=== PATIENT | female | born 1950 | race Hispanic/Latino ===

== ENCOUNTER → 2018-03-12 | Day surgery (SDC) | payer BC ==
[2018-03-08 11:08] LABS: BASOPHILS % 0.6 % (0.0-1.0); EOSINOPHILS # (AUTO) 0.1 (0.0-0.4); EOSINOPHILS % 1.7 % (0.0-6.0); HEMATOCRIT 42.4 % (34.2-44.1); HEMOGLOBIN 13.8 g/dL (12.0-16.0); LYMPHOCYTES % 31.7 % (18.0-39.1); MEAN CORPUSCULAR HEMOGLOBIN 31.4 pg (28-32); MEAN CORPUSCULAR HGB CONC 32.5 g/dL (31-35); MEAN CORPUSCULAR VOLUME 96.4 fL (81-99); MONOCYTES # (AUTO) 0.5 (0.2-0.8); NEUTROPHILS # (AUTO) 3.8 (2.1-6.9); NEUTROPHILS % 58.7 % (38.7-80.0); PLATELET COUNT 258 x10e3/uL (140-360); RED CELL DISTRIBUTION WIDTH 13.8 % (11.7-14.4)
[2018-03-08 11:53] LABS: ANION GAP 11.1 mmol/L (8-16); BLOOD UREA NITROGEN 25 mg/dL (7-26); BUN/CREATININE RATIO 30 (6-25); CALCIUM 9.9 mg/dL (8.4-10.2); CARBON DIOXIDE 27 mmol/L (22-29); CHLORIDE 105 mmol/L (98-107); CREATININE, SERUM 0.83 mg/dL (0.57-1.11); EST GLOMERULAR FILTRATION RATE > 60 ML/MIN (60-); GLUCOSE 93 mg/dL (74-118); POTASSIUM 4.1 mmol/L (3.5-5.1); SODIUM 139 mmol/L (136-145)
--- NOTE | 2018-03-08 12:29 | Diagnostic Imaging Report ---
EXAMINATION: PA and lateral views of the chest. COMPARISON: None CLINICAL HISTORY: Preoperative study excisional biopsy neck mass DISCUSSION: The lungs are reasonably well inflated. No focal airspace consolidation, pleural effusion, or pneumothorax. Hazy opacity adjacent to the cardiac apex likely reflects prominent epicardial fat. Otherwise normal cardiomediastinal contour with the exception of mild atherosclerotic calcification of the thoracic aorta. No acute osseous abnormality. IMPRESSION: No acute cardiopulmonary abnormalities. Signed by: Dr. Jarrett Wolf M.D. on 03/08/2018 12:25 PM
[~2018-03-12] MED LIST: AMLODIPINE BES2.5 MG PO; AMLODIPINE BESYL5 MG PO; BENICAR20 MG PO; BISOPROLOL FUMAR5 MG PO; BUPIVACAINE 0.25%/EPI 30ML SDV INJ ONE; CLARINEX5 MG PO; CLARITIN-D 121 EACH PO; CRESTOR10 MG PO; DEXAMETHASONE SOD PHOS INJ 4 MG/ML VIAL ONE; DEXTROSE 5% 250ML 250 ML IV ONE; DIOVAN40 MG PO; FENTANYL CITRATE/PF 100MCG/2 ML INJ ONE; HYDROCODONE/APAP 7.5MG-325MG 1 EA TAB ONE; LEVOTHYROXINE88 MCG PO; LEXAPRO10 MG PO; LIDOCAINE HCL 2% LOCAL INJ 5 ML SDV VIAL INJ ONE; LORATADINE10 MG PO; MIDAZOLAM HCL 2 MG/2 ML VIAL ONE; MORPHINE SULFATE 2 MG/ML SYR ONE; OMEPRAZOLE40 MG PO; ONDANSETRON HCL INJ 2 MG/ML VIAL ONE; PHENTERMINE H37.5 M1 PO; PROMETHAZINE HCL (IM) 25 MG/ML VIAL ONE; PROPOFOL IV EMULSION 10 MG/ML 20 ML VIAL ONE; ROCURONIUM BROMIDE 10 MG/ML 5ML VIAL ONE; SEVOFLURANE INHAL SOLN 250 ML PEN BTL ONE; SYNTHROID100 MCG PO; TYLENOL WITH C1 EACH PO; VESICARE5 MG PO; VICTOZA 3-0.6 MG/0.1 SQ; XIGDUO XR PO
--- NOTE | 2018-03-12 15:26 | Operative Report ---
DATE OF PROCEDURE: March 12, 2018 PREOPERATIVE DIAGNOSIS: Right upper neck mass, rule out malignancy. 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 INDUSTRIAL SALES ENGINEER: JACEK Jimenez. ANESTHESIA: General. COMPLICATIONS: None. ESTIMATED BLOOD LOSS: Minimal. DESCRIPTION OF PROCEDURE: With the patient lying in bed in the supine position under good general endotracheal anesthesia, the neck was prepped with Betadine solution and draped in the usual manner. An incision was made in the right upper neck in the submandibular area and carried down through the subcutaneous tissue. The anterior border of the sternocleidomastoid was then identified and retracted laterally and underneath the sternocleidomastoid immediately a well-encapsulated mass was encountered. This had the appearance of either some kind of parotid or thyroid tissue. This was slowly and carefully then from all of its attachments. There was absolutely no attachment or blood supply coming to the same from below. There was small amount of blood supply coming in at the very top of the lesion and this was ligated with 2-0 Vicryl and the specimen was totally and completely divided and sent for frozen section, which came back as probably thyroid tissue pending permanent section. 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 This is way away from the lower neck and from the midline and had no semblance of any blood supply coming either medially or inferiorly to the mass. The whole area was then thoroughly irrigated. Perfect hemostasis was ascertained. The platysma and subcutaneous tissue were reapproximated with interrupted sutures of 3-0 Vicryl and the skin was closed with interrupted sutures of 5-0 nylon. A dressing was applied. The sponge, lap and needle count was correct. Patient tolerated the procedure well and returned to the recovery room in stable condition. Job#: [id number]
[2018-03-12 15:45] VITALS: BP 128/72
--- OUTSIDE RECORDS SUMMARY | 2018-03-16 13:16 | XMS REPORT | Clinical Summary ---
Author Author ERNESTINA [facility] Address Unknown Phone Unavailable Care Team Providers Care Franchise Field Consultant Name Role Phone PCP Unavailable Allergies No Known Allergies Current Medications Prescription Sig. Disp. Refills Start End Date Status Date valsartan (DIOVAN) 320 MG Take 320 mg by mouth Active tablet daily. amLODIPine (NORVASC) 2.5 Take 2.5 mg by mouth Active MG tablet daily. bisoprolol (ZEBETA) 5 MG Take 5 mg by mouth daily. Active tablet levothyroxine (SYNTHROID, Take 88 mcg by mouth Active LEVOTHROID) 88 MCG tablet Every morning on an empty stomach. dapagliflozin-metformin Take by mouth daily. Active (XIGDUO XR) 10-1,000 mg per ER tablet rosuvastatin (CRESTOR) 5 Take 5 mg by mouth daily. Active MG tablet escitalopram oxalate Take 10 mg by mouth Active (LEXAPRO) 10 MG tablet daily. liraglutide (VICTOZA Inject subcutaneously Active 2-MATEUSZ) 0.6 mg/0.1 mL (18 daily . mg/3 mL) PnIj omeprazole (PRILOSEC) 20 Take 20 mg by mouth Active MG capsule daily. difluprednate (DUREZOL) Apply to eye(s) 4 (four) Active 0.05 % Drop times daily. bromfenac (PROLENSA) 0.07 Apply to eye(s) daily Active % Drop Left eyr. TIZANIDINE HCL Take by mouth daily . Active (TIZANIDINE ORAL) mirabegron (MYRBETRIQ) 50 Take 50 mg by mouth 06/26/19 Discontin mg Tb24 ER tablet daily. 18 ued polymyxin B 1 drop. 06/26/19 Discontin sulf-trimethoprim 18 ued (POLYTRIM) 10,000 unit- 1 mg/mL Drop Active Problems Not on file Encounters Date Type Specialty Care Team Description 06/29/2017 [facility] Yudi Rausch, Encounter 06/29/2017 Anesthesia Marlyn Adam MD Event 06/29/2017 Procedure Pass 06/29/2017 Surgery Yudi Rausch, EXTRACTION,CATARACT W/IOL 06/26/2017 Hospital Pre-Admission Testing Encounter 05/18/2017 [facility] Yudi Rausch, Encounter 05/18/2017 Anesthesia Keon Muñoz Event MD Juan 05/18/2017 Procedure Pass 05/18/2017 Surgery Yudi Rausch, EXTRACTION,CATARACT W/IOL 05/15/2017 Hospital Pre-Admission Testing Encounter after 03/11/2017 Social History Tobacco Use Types Packs/Day Years Used Date Never Smoker Smokeless Tobacco: Never Used Alcohol Use Drinks/Week oz/Week Comments No Sex Assigned at Date Recorded Not on file Last Filed Vital Signs Vital Sign Reading Time Taken Blood Pressure 143/72 06/29/2017 8:30 AM SONOGRAPHY TECHNOLOGIST Pulse 72 06/29/2017 8:30 AM SONOGRAPHY TECHNOLOGIST Temperature 36.9 C (98.4 F) 06/29/2017 8:30 AM SONOGRAPHY TECHNOLOGIST Respiratory Rate 16 06/29/2017 8:30 AM SONOGRAPHY TECHNOLOGIST Oxygen Saturation 99% 06/29/2017 8:30 AM SONOGRAPHY TECHNOLOGIST Inhaled Oxygen - - Concentration Weight 74.8 kg (165 lb) 06/26/2017 10:21 AM SONOGRAPHY TECHNOLOGIST Height 152.4 cm (5') 06/26/2017 10:21 AM SONOGRAPHY TECHNOLOGIST Body Mass Index 32.22 06/26/2017 10:21 AM SONOGRAPHY TECHNOLOGIST Plan of Treatment Not on file Implants Implanted Type Area Bacteriologist Food Device Expiration Model / Identifier Date Serial / Lot Iol Acrysof Radha 6.0 13 23d Ophthalmol Right: Eye WARNER LAB:SURG 08/29/2020 SN60WF.230 Sn60wf.230 - [id number] / Implanted: Qty: 1 on 05/18/2017 by [id number] Yudi Rausch MD 7 / Iol Acrysof Radha 6.0 13 23.5d Ophthalmol Left: Eye WARNER LAB:SURG 08/29/2021 SN60WF.235 Sn60wf.235 - [id number] [id number] / Implanted: Qty: 1 on 06/29/2017 by [id number] Yudi Rausch MD 1 / Procedures Procedure Name Priority Date/Time Associated Diagnosis Comments EXTRACTION,CATARACT W/IOL 06/29/2017 H25.12- AGE RELATED 7:43 AM SONOGRAPHY TECHNOLOGIST NUCLEAR CATARACT, LEFT EYE Special Needs (STANDARD LENS) EXTRACTION,CATARACT W/IOL 05/18/2017 H25.13- AGE RELATED 8:38 AM SONOGRAPHY TECHNOLOGIST NUCLEAR CATARACT, BILATERAL Special Needs (STANDARD LENS) after 03/11/2017 Results * POC-Glucose meter (06/29/2017 7:31 AM) Only the most recent of 2 results within the time period is included. Component Value Ref Range POC-Glucose Meter 83Comment: TESTED AT [facility] [address] 70 - 110 mg/dL [facility] [address] Specimen Performing Laboratory Blood [facility] [address] [address] after 03/11/2017
--- OUTSIDE RECORDS SUMMARY | 2018-03-16 13:16 | XMS REPORT ---
Author Author [facility] Address Unknown Phone Unavailable Care Team Providers Care [employer] Artistic Director Name Role Phone Mariel QUINTANA Unavailable Unavailable Nir YAN Unavailable Unavailable Problems This patient has no known problems. Allergies, Adverse Reactions, Alerts This patient has no known allergies or adverse reactions. Medications This patient has no known medications. Results Test Description Test Time Test Comments Text Results Atomic Results Result Comments CHEST 2 VIEWS 2018-03-08 12:24:00 [place] [address] Patient Name: NOE OCONNOR MR #: [id number] : 1950 Age/Sex: 67/F Req #: [id number] Adm Physician: Ordered by: EDYTA QUINTANA MD Report #: [id number] Location: OR Room/Bed: Procedure: [id number] DX/CHEST 2 VIEWS Exam Date: 03/08/18 Exam Time: 1120 REPORT STATUS: Signed EXAMINATION: PA and lateral views of the chest. COMPARISON: None CLINICAL HISTORY: Preoperative study excisional biopsy neck mass DISCUSSION: The lungs are reasonably well inflated. No focal airspace consolidation, pleural effusion, or pneumothorax. Hazy opacity adjacent to the cardiac apex likely reflects prominent epicardial fat. Otherwise normal cardiomediastinal contour with the exception of mild atherosclerotic calcification of the thoracic aorta. No acute osseous abnormality. IMPRESSION: No acute cardiopulmonary abnormalities. Signed by: Dr. Corinne Fajardo M.D. on 03/08/2018 12:25 PM Dictated By: CORINNE FAJARDO MD 24 Transcribed By: LUIS FERNANDO on 03/08/181224 COPY TO: EDYTA QUINTANA MD POCT-GLUCOSE METER 2017-06-29 07:34:00 POC-GLUCOSE METER (BEAKER) (test ygxj=[id number]) 83 mg/dL 70-110 TESTED AT [place] [address] POCT-GLUCOSE [id number] 07:45:00* Test Item Value Reference Range Comments POC-GLUCOSE METER (BEAKER) (test rdsn=[id number]) 94 mg/dL 70-110 TESTED AT [place] [address]
== END | disposition home or self-care (01) ==
LOC: OR 08:15
PROVIDERS: ATTEND Surgery
DX: C73 Malignant neoplasm of thyroid gland (principal); E11.22 Type 2 diabetes mellitus with diabetic chronic kidney disease; I12.0 Hypertensive chronic kidney disease with stage 5 chronic kidney disease or end stage renal disease; N18.6 End stage renal disease; G47.33 Obstructive sleep apnea (adult) (pediatric); F32.9 Major depressive disorder, single episode, unspecified; F41.9 Anxiety disorder, unspecified; Z01.810 Encounter for preprocedural cardiovascular examination; Z01.812 Encounter for preprocedural laboratory examination; Z01.818 Encounter for other preprocedural examination; Z79.84 Long term (current) use of oral hypoglycemic drugs
CPT/HCPCS: 36415 ×2; 60200; 71046; 80048; 82948; 85025; 88307; 88331; 93005; J1100; J2001; J2250; J2270; J2405; J2550; J2704; J7070; 88304; 88305

== ENCOUNTER 2018-05-13 10:38 | Inpatient (IN) | payer BC, MEDICARE ==
[~2018-05-13 10:38] MED LIST changes: -AMLODIPINE BESYL5 MG PO; -BUPIVACAINE 0.25%/EPI 30ML SDV INJ ONE; -CLARITIN-D 121 EACH PO; -DEXAMETHASONE SOD PHOS INJ 4 MG/ML VIAL ONE; -DEXTROSE 5% 250ML 250 ML IV ONE; -FENTANYL CITRATE/PF 100MCG/2 ML INJ ONE; -HYDROCODONE/APAP 7.5MG-325MG 1 EA TAB ONE; -LIDOCAINE HCL 2% LOCAL INJ 5 ML SDV VIAL INJ ONE; -LORATADINE10 MG PO; -MIDAZOLAM HCL 2 MG/2 ML VIAL ONE; -MORPHINE SULFATE 2 MG/ML SYR ONE; -ONDANSETRON HCL INJ 2 MG/ML VIAL ONE; -PROMETHAZINE HCL (IM) 25 MG/ML VIAL ONE; -PROPOFOL IV EMULSION 10 MG/ML 20 ML VIAL ONE; -ROCURONIUM BROMIDE 10 MG/ML 5ML VIAL ONE; -SEVOFLURANE INHAL SOLN 250 ML PEN BTL ONE; -SYNTHROID100 MCG PO; -TYLENOL WITH C1 EACH PO
--- OUTSIDE RECORDS SUMMARY | 2018-05-13 10:41 | XMS REPORT | Clinical Summary ---
Author Author ERNESTINA [facility] Address Unknown Phone Unavailable Care Team Providers Care Lean [employer] Black Belt Name Role Phone Sharpless PCP Allergies No Known Allergies Medications End Date Status Medication Sig Dispensed Refills Start Date Active valsartan (DIOVAN) 320 MG Take 320 mg 0 tablet by mouth daily. Active amLODIPine (NORVASC) 2.5 Take 2.5 mg 0 MG tablet by mouth daily. Active bisoprolol (ZEBETA) 5 MG Take 5 mg by 0 tablet mouth daily. Active levothyroxine (SYNTHROID, Take 88 mcg 0 LEVOTHROID) 88 MCG tablet by mouth Every morning on an empty stomach. Active dapagliflozin-metformin Take by mouth 0 (XIGDUO XR) 10-1,000 mg daily. per ER tablet Active rosuvastatin (CRESTOR) 5 Take 5 mg by 0 MG tablet mouth daily. Active escitalopram oxalate Take 10 mg by 0 (LEXAPRO) 10 MG tablet mouth daily. Active liraglutide (VICTOZA Inject 0 2-MATEUSZ) 0.6 mg/0.1 mL (18 subcutaneousl mg/3 mL) PnIj y daily . Active omeprazole (PRILOSEC) 20 Take 20 mg by 0 MG capsule mouth daily. Active difluprednate (DUREZOL) Apply to 0 0.05 % Drop eye(s) 4 (four) times daily. Active bromfenac (PROLENSA) 0.07 Apply to 0 % Drop eye(s) daily Left eyr. Active TIZANIDINE HCL Take by mouth 0 (TIZANIDINE ORAL) daily . 06/26/2017 Discontinued mirabegron (MYRBETRIQ) 50 Take 50 mg by 0 mg Tb24 ER tablet mouth daily. 06/26/2017 Discontinued polymyxin B 1 drop. 0 sulf-trimethoprim (POLYTRIM) 10,000 unit- 1 mg/mL Drop Active Problems Not on file Encounters Care Team Description Date Type Specialty Marlyn Adam MD 06/29/2017 Anesthesia Event Yudi Rausch MD EXTRACTION,CATARACT W/IOL 06/29/2017 Surgery Yudi Rausch MD 06/29/2017 Hospital Encounter Resource, Oqmt Preadmit Phone 06/26/2017 Hospital Pre-Admission Testing Encounter Yudi Rausch MD EXTRACTION,CATARACT W/IOL 05/18/2017 Surgery Keon Muñoz MD 05/18/2017 Anesthesia Event Yudi Rausch MD 05/18/2017 Hospital Encounter 05/15/2017 Hospital Pre-Admission Testing Encounter after 05/12/2017 Social History Date Tobacco Use Types Packs/Day Years Used Never Smoker Smokeless Tobacco: Never Used Alcohol Use Drinks/Week oz/Week Comments No Sex Assigned at Date Recorded Not on file Industry Job Start Date Occupation Not on file Not on file Not on file Travel End Travel History Travel Start No recent travel history available. Last Filed Vital Signs Time Taken Vital Sign Reading 06/29/2017 8:30 AM FINE ARTS MODEL Blood Pressure 143/72 06/29/2017 8:30 AM FINE ARTS MODEL Pulse 72 06/29/2017 8:30 AM FINE ARTS MODEL Temperature 36.9 C (98.4 F) 06/29/2017 8:30 AM FINE ARTS MODEL Respiratory Rate 16 06/29/2017 8:30 AM FINE ARTS MODEL Oxygen Saturation 99% - Inhaled Oxygen - Concentration 06/26/2017 10:21 AM FINE ARTS MODEL Weight 74.8 kg (165 lb) 06/26/2017 10:21 AM FINE ARTS MODEL Height 152.4 cm (5') 06/26/2017 10:21 AM FINE ARTS MODEL Body Mass Index 32.22 Plan of Treatment Not on file Implants Device Identifier Shelf Expiration Date Model / Serial / Lot Implanted Type Area Manufactur er 08/29/2020 SN60WF.230 / [id number] / Iol Acrysof Radha 6.0 13 23d Ophthalmol Right: Eye WARNER Sn60wf.230 - [id number] [id number] LAB:SURG Implanted: Qty: 1 on 05/18/2017 by Yudi Rausch MD 08/29/2021 SN60WF.235 / [id number] / Iol Acrysof Radha 6.0 13 23.5d Ophthalmol Left: Eye WARNER Sn60wf.235 - [id number] [id number] LAB:SURG Implanted: Qty: 1 on 06/29/2017 by Yudi Rausch MD Procedures Comments Procedure Name Priority Date/Time Associated Diagnosis EXTRACTION,CATARACT W/IOL 06/29/2017 H25.12- AGE RELATED 7:43 AM FINE ARTS MODEL NUCLEAR CATARACT, LEFT EYE Special Needs (STANDARD LENS) POCT-GLUCOSE METER Routine 06/29/2017 7:31 AM FINE ARTS MODEL EXTRACTION,CATARACT W/IOL 05/18/2017 H25.13- AGE RELATED 8:38 AM FINE ARTS MODEL NUCLEAR CATARACT, BILATERAL Special Needs (STANDARD LENS) POCT-GLUCOSE METER Routine 05/18/2017 7:36 AM FINE ARTS MODEL after 05/12/2017 Results * POC-Glucose meter (06/29/2017 7:31 AM FINE ARTS MODEL) Only the most recent of 2 results within the time period is included. POC-Glucose Meter 83Comment: TESTED AT [facility] 70 - 110 mg/dL [facility] [address] [facility] [place] [place] [address] Specimen Blood Performing Organization Address City/State/Zipcode Phone Number [facility] [address] [place] [address] [facility] after 05/12/2017 Insurance Payer Benefit Subscriber ID Type Phone Address Plan / Group BLUE CROSS/BLUE SHIELD BCBS PPO xxxxxxxxxxxx PPO [phone] [address] [place] [address] CHOICE
[2018-05-13 11:46] LABS: BASOPHILS # (AUTO) 0.1 (0.0-0.1); BASOPHILS % 1.1 % (0.0-1.0); EOSINOPHILS # (AUTO) 0.1 (0.0-0.4); EOSINOPHILS % 1.9 % (0.0-6.0); HEMATOCRIT 42.6 % (34.2-44.1); HEMOGLOBIN 14.2 g/dL (12.0-16.0); LYMPHOCYTES # (AUTO) 1.7 (1.0-3.2); LYMPHOCYTES % 36.7 % (18.0-39.1); MEAN CORPUSCULAR HEMOGLOBIN 31.6 pg (28-32); MEAN CORPUSCULAR HGB CONC 33.3 g/dL (31-35); MEAN CORPUSCULAR VOLUME 94.9 fL (81-99); MONOCYTES # (AUTO) 0.4 (0.2-0.8); MONOCYTES % 7.9 % (4.4-11.3); NEUTROPHILS # (AUTO) 2.5 (2.1-6.9); NEUTROPHILS % 52.2 % (38.7-80.0); PLATELET COUNT 272 x10e3/uL (140-360); RED BLOOD COUNT 4.49 x10e6/uL (3.6-5.1)
[2018-05-13 12:00] LABS: ANION GAP 11.9 mmol/L (8-16); BLOOD UREA NITROGEN 20 mg/dL (7-26); BUN/CREATININE RATIO 27 (6-25); CALCIUM 9.8 mg/dL (8.4-10.2); CARBON DIOXIDE 26 mmol/L (22-29); CHLORIDE 105 mmol/L (98-107); CREATININE, SERUM 0.74 mg/dL (0.57-1.11); EST GLOMERULAR FILTRATION RATE > 60 ML/MIN (60-); GLUCOSE 86 mg/dL (74-118); POTASSIUM 3.9 mmol/L (3.5-5.1); SODIUM 139 mmol/L (136-145)
[2018-05-13] MEDS ORDERED: BENICAR20 MG PO (12:01)
[2018-05-13] MEDS ORDERED: AMLODIPINE BESYL5 MG PO (12:01)
[2018-05-13] MEDS ORDERED: SYNTHROID100 MCG PO (12:01)
[2018-05-13] MEDS ORDERED: LORATADINE10 MG PO (12:01)
[2018-05-13] MEDS ORDERED: CLARITIN-D 121 EACH PO (12:01)
[2018-05-13] MEDS ORDERED: PROPOFOL IV EMULSION 10 MG/ML 20 ML VIAL ONE ×2 (13:44→15:31)
[2018-05-13] MEDS ORDERED: SEVOFLURANE INHAL SOLN 250 ML PEN BTL ONE ×2 (13:44→15:31)
[2018-05-13] MEDS ORDERED: ROCURONIUM BROMIDE 10 MG/ML 5ML VIAL ONE ×2 (13:44→15:31)
[2018-05-13] MEDS ORDERED: ONDANSETRON HCL INJ 2 MG/ML VIAL ONE ×2 (13:44→17:01)
[2018-05-13] MEDS ORDERED: LIDOCAINE HCL 2% LOCAL INJ 5 ML SDV VIAL INJ ONE ×2 (13:44→15:31)
[2018-05-13] MEDS ORDERED: NEOSTIGMINE 5 MG/5ML SYR ONE (13:44)
[2018-05-13] MEDS ORDERED: DEXAMETHASONE SOD PHOS INJ 4 MG/ML VIAL ONE ×2 (13:44→15:31)
[2018-05-13] MEDS ORDERED: GLYCOPYRROLATE INJ 1MG/ 5 ML SYR ONE (13:44)
[2018-05-13] MEDS ORDERED: ACETAMINOPHEN 1000 MG/100 ML IV ONE (15:31)
[2018-05-13] MEDS ORDERED: KETOROLAC TROMETHAMINE 30 MG/ML VIAL ONE (15:31)
[2018-05-13] MEDS: SODIUM CHLORIDE 0.9% 1000ML 1,000 ML IV SCH (16:36)
[2018-05-13] MEDS ORDERED: HYDROCODONE/APAP 7.5MG-325MG 1 EA TAB PO PRN (16:45)
[2018-05-13] MEDS ORDERED: KETOROLAC TROMETHAMINE 30 MG/ML VIAL IV PRN (16:45)
[2018-05-13] MEDS: PANTOPRAZOLE 40 MG 10ML VIAL IV SCH (16:45)
[2018-05-13] MEDS ORDERED: HYDROMORPHONE 1MG/1ML INJ IV PRN (16:45)
[2018-05-13] MEDS ORDERED: ACETAMINOPHEN 1000 MG/100 ML IV PRN (16:45)
[2018-05-13] MEDS ORDERED: FENTANYL CITRATE/PF 100MCG/2 ML INJ ONE ×2 (17:02→18:39)
[2018-05-13] MEDS ORDERED: METOCLOPRAMIDE HCL 10 MG/2ML VIAL ONE (17:40)
[2018-05-13] MEDS: INSULIN REGULAR, HUMAN 100 UNIT/1 ML 3ML VIAL SQ SCH (18:00)
[2018-05-13] MEDS ORDERED: MIDAZOLAM HCL 2 MG/2 ML VIAL ONE (18:39)
[2018-05-13] MEDS ORDERED: HYDROMORPHONE 2MG/ML 2 MG/ML ML ONE (18:46)
--- OUTSIDE RECORDS SUMMARY | 2018-05-13 19:55 | XMS REPORT | Clinical Summary ---
Author Author ERNESTINA [facility] Address Unknown Phone Unavailable Care Team Providers Care Biochemical Development Engineer Name Role Phone Sharpless PCP Allergies No [...] Taken Vital Sign Reading 06/29/2017 8:30 AM HUMAN SERVICES PROFESSIONAL Blood Pressure 143/72 06/29/2017 8:30 AM HUMAN SERVICES PROFESSIONAL Pulse 72 06/29/2017 8:30 AM HUMAN SERVICES PROFESSIONAL Temperature 36.9 C (98.4 F) 06/29/2017 8:30 AM HUMAN SERVICES PROFESSIONAL Respiratory Rate 16 06/29/2017 8:30 AM HUMAN SERVICES PROFESSIONAL Oxygen Saturation 99% - Inhaled Oxygen - Concentration 06/26/2017 10:21 AM HUMAN SERVICES PROFESSIONAL Weight 74.8 kg (165 lb) 06/26/2017 10:21 AM HUMAN SERVICES PROFESSIONAL Height 152.4 cm (5') 06/26/2017 10:21 AM HUMAN SERVICES PROFESSIONAL Body Mass Index 32.22 Plan of Treatment Not on file Implants Device Identifier Shelf Expiration Date Model / Serial / Lot Implanted Type Area Manufactur er 08/29/2020 SN60WF.230 / [id number] / Iol Acrysof Radha 6.0 13 23d Ophthalmol Right: Eye WARNER Sn60wf.230 - [id number] [id number] LAB:SURG Implanted: Qty: 1 on 05/18/2017 by Yudi Rausch MD 08/29/2021 SN60WF.235 / [id number] / Iol Acrysof Radha 6.0 13 23.5d Ophthalmol Left: Eye WARNER Sn60wf.235 - [id number] [id number] LAB:SURG Implanted: Qty: 1 on 06/29/2017 by Yudi Rausch MD Procedures Comments Procedure Name Priority Date/Time Associated Diagnosis EXTRACTION,CATARACT W/IOL 06/29/2017 H25.12- AGE RELATED 7:43 AM HUMAN SERVICES PROFESSIONAL NUCLEAR CATARACT, LEFT EYE Special Needs (STANDARD LENS) POCT-GLUCOSE METER Routine 06/29/2017 7:31 AM HUMAN SERVICES PROFESSIONAL EXTRACTION,CATARACT W/IOL 05/18/2017 H25.13- AGE RELATED 8:38 AM HUMAN SERVICES PROFESSIONAL NUCLEAR CATARACT, BILATERAL Special Needs (STANDARD LENS) POCT-GLUCOSE METER Routine 05/18/2017 7:36 AM HUMAN SERVICES PROFESSIONAL after 05/12/2017 Results * POC-Glucose meter (06/29/2017 7:31 AM HUMAN SERVICES PROFESSIONAL) Only the most recent of 2 results within the time period is included. POC-Glucose Meter 83Comment: TESTED AT [facility] 70 - 110 mg/dL [facility] [address] [facility] [place] [address] Specimen Blood Performing Organization Address City/State/Zipcode Phone Number [facility] [address] [place] [address] [facility] after 05/12/2017 Insurance Payer Benefit Subscriber ID Type Phone Address Plan / Group BLUE CROSS/BLUE SHIELD BCBS PPO xxxxxxxxxxxx PPO [phone] [address] [place] [address] CHOICE
[2018-05-13 20:00] VITALS: BP 145/71
[2018-05-14] VITALS (9 sets, daily range): BP systolic 124–164; BP diastolic 63–73
[2018-05-14] MEDS: HYDROMORPHONE 2MG/ML 2 MG/ML ML IV PRN ×4 (01:41→17:01)
[2018-05-14] MEDS: SODIUM CHLORIDE 0.9% 1000ML 1,000 ML IV SCH ×3 (02:36→22:18)
[2018-05-14] MEDS: INSULIN REGULAR, HUMAN 100 UNIT/1 ML 3ML VIAL SQ SCH ×4 (05:39→18:00)
[2018-05-14 05:56] LABS: BASOPHILS % 0.1 % (0.0-1.0); HEMOGLOBIN 13.7 g/dL (12.0-16.0); LYMPHOCYTES # (AUTO) 1.1 (1.0-3.2); LYMPHOCYTES % 14.6 % (18.0-39.1); MEAN CORPUSCULAR HEMOGLOBIN 31.4 pg (28-32); MEAN CORPUSCULAR HGB CONC 33.4 g/dL (31-35); MONOCYTES # (AUTO) 0.4 (0.2-0.8); MONOCYTES % 5.9 % (4.4-11.3); NEUTROPHILS # (AUTO) 5.9 (2.1-6.9); PLATELET COUNT 282 x10e3/uL (140-360); RED BLOOD COUNT 4.36 x10e6/uL (3.6-5.1); RED CELL DISTRIBUTION WIDTH 13.8 % (11.7-14.4)
[2018-05-14 06:05] LABS: ANION GAP 14.3 mmol/L (8-16); BLOOD UREA NITROGEN 18 mg/dL (7-26); BUN/CREATININE RATIO 26 (6-25); CALCIUM 9.2 mg/dL (8.4-10.2); CARBON DIOXIDE 24 mmol/L (22-29); CHLORIDE 103 mmol/L (98-107); CREATININE, SERUM 0.69 mg/dL (0.57-1.11); EST GLOMERULAR FILTRATION RATE > 60 ML/MIN (60-); GLUCOSE 118 mg/dL (74-118); POTASSIUM 4.3 mmol/L (3.5-5.1); SODIUM 137 mmol/L (136-145)
[2018-05-14] MEDS: BISOPROLOL FUMARATE 10 MG TAB PO SCH (08:55)
[2018-05-14] MEDS: AMLODIPINE BESYLATE 5 MG TAB PO SCH (08:55)
[2018-05-14] MEDS: OLMESARTAN 20 MG TAB PO SCH (08:55)
[2018-05-14] MEDS ORDERED: NON-FORMULARY MEDICATION (Bisoprolol Fumarate 5 MG) PO SCH (09:00)
[2018-05-14] MEDS: ONDANSETRON HCL INJ 2 MG/ML VIAL IV PRN ×2 (10:16→17:01)
[2018-05-14] MEDS: ESCITALOPRAM OXALATE 10 MG TAB PO SCH (10:29)
[2018-05-14] MEDS: PANTOPRAZOLE 40 MG 10ML VIAL IV SCH (17:01)
--- NOTE | 2018-05-14 19:30 | NUR ---
ROUNDS DONE WITH MORNING RN.PT IS LYEING ON THE BED.NO RESP.DISTRESS.ALLERTX3.FAMILY MEMBERS AT BED SIDE.HAS C/O SORE THROAT.INCISION SITE IS DRY AND INTACT.BED LOCKED AND IN LOWEST POSITION.PHONE AND CALL LIGHT WITHIN REACH.INSTRUCTED TO CALL FOR ASSISTANCE NEEDED.FREQUENT ROUNDING.
[2018-05-14] MEDS: CEPACOL SORE THROAT LOZENGES PO PRN (20:35)
--- NOTE | 2018-05-14 21:00 | NUR ---
DR VINCENT IS IN THE UNIT.RECEIVED NEW ORDERS FOR SORE THROAT. KEEP MONITORING THE PT.
[2018-05-14] MEDS ORDERED: ACETAMINOPHEN 1000 MG/100 ML IV PRN (22:30)
[2018-05-15] VITALS: BP 155/70
[2018-05-15 04:00] VITALS: BP 162/79
[2018-05-15] MEDS: ONDANSETRON HCL INJ 2 MG/ML VIAL IV PRN (05:26)
[2018-05-15] MEDS: HYDROMORPHONE 2MG/ML 2 MG/ML ML IV PRN (05:28)
[2018-05-15] MEDS: CEPACOL SORE THROAT LOZENGES PO PRN (05:30)
[2018-05-15] MEDS: INSULIN REGULAR, HUMAN 100 UNIT/1 ML 3ML VIAL SQ SCH ×2 (06:00)
[2018-05-15] MEDS: SODIUM CHLORIDE 0.9% 1000ML 1,000 ML IV SCH (06:32)
--- NOTE | 2018-05-15 06:52 | NUR ---
REPORT GIVEN TO THE ONCOMING RN.WALKING ROUNDS DONE.STABLE CONDITION.FAMILY MEMBER @ BED SIDE.
--- NOTE | 2018-05-15 06:52 | NUR ---
REPORT GIVEN TO THE ONCOMING RN.WALKING ROUNDS DONE.STABLE CONDITION.FAMILY MEMBER @ BED SIDE.
[2018-05-15 09:12] VITALS: BP 127/61
[2018-05-15] MEDS: BISOPROLOL FUMARATE 10 MG TAB PO SCH (09:45)
[2018-05-15] MEDS: AMLODIPINE BESYLATE 5 MG TAB PO SCH (09:45)
[2018-05-15] MEDS: OLMESARTAN 20 MG TAB PO SCH (09:45)
[2018-05-15] MEDS: ESCITALOPRAM OXALATE 10 MG TAB PO SCH (09:45)
[2018-05-15 13:04] VITALS: BP 119/56
[2018-05-15] MEDS ORDERED: TYLENOL WITH C1 EACH PO (13:05)
== END 2018-05-15 13:22 | disposition home or self-care (01) | DRG 626 ==
LOC: OR 10:38 → MED/SURG 19:53
PROVIDERS: ADMIT Surgery; ATTEND Surgery
PROC: 07T10ZZ Resection of Right Neck Lymphatic, Open Approach (ICD-10-PCS; 2018-05-13)
PROC: 0GTK0ZZ Resection of Thyroid Gland, Open Approach (ICD-10-PCS; principal; 2018-05-13 11:30)
DX: C73 Malignant neoplasm of thyroid gland (principal); C77.9 Secondary and unspecified malignant neoplasm of lymph node, unspecified; G47.33 Obstructive sleep apnea (adult) (pediatric); I10 Essential (primary) hypertension
CPT/HCPCS: 36415; 80048; 82310; 82948; 85025; 88304; 88307; J1100; J1885; J2001; J2250; J2405; J2765; J7030

== ENCOUNTER → 2018-07-07 | Outpatient (CLI) | payer BC ==
[~2018-07-07] MED LIST changes: +AMLODIPINE BESYL5 MG PO; +CLARITIN-D 121 EACH PO; +LORATADINE10 MG PO; +SYNTHROID100 MCG PO; +TYLENOL WITH C1 EACH PO
== END ==
LOC: LAB 14:30
PROVIDERS: ATTEND Surgery
DX: E07.9 Disorder of thyroid, unspecified (principal)
CPT/HCPCS: 36415; 84443

== ENCOUNTER → 2019-01-14 | Outpatient (CLI) | payer BC ==
[2019-01-14 10:21] LABS: FREE THYROXINE INDEX 3.5104 (1.4-3.8); THYROID STIMULATING HORMONE 0.003 uIU/mL (0.350-4.940)
== END ==
LOC: LAB 09:21
PROVIDERS: ATTEND Surgery
DX: C73 Malignant neoplasm of thyroid gland (principal)
CPT/HCPCS: 36415; 84436; 84443; 84479

== ENCOUNTER → 2019-03-09 | Outpatient (CLI) | payer BC ==
[~2019-03-09] MED LIST changes: +IOPAMIDOL 370 MG/ML 200 ML INFUS..BTL INJ ONE; +SODIUM CHLORIDE 0.9% 50ML 50 ML ONE
[2019-03-09 14:38] LABS: ALANINE AMINOTRANSFERASE 21 IU/L (0-55); ALBUMIN 3.5 g/dL (3.5-5.0); ALBUMIN/GLOBULIN RATIO 0.9 (0.8-2.0); ALKALINE PHOSPHATASE 66 IU/L (40-150); BLOOD UREA NITROGEN 20 mg/dL (7-26); BUN/CREATININE RATIO 25 (6-25); CALCIUM 9.6 mg/dL (8.4-10.2); CARBON DIOXIDE 23 mmol/L (22-29); CHLORIDE 107 mmol/L (98-107); CREATININE, SERUM 0.81 mg/dL (0.57-1.11); EST GLOMERULAR FILTRATION RATE > 60 ML/MIN (60-); GLUCOSE 92 mg/dL (74-118); SODIUM 138 mmol/L (136-145)
[2019-03-09 14:50] LABS: BASOPHILS % 0.5 % (0.0-1.0); EOSINOPHILS # (AUTO) 0.1 (0.0-0.4); EOSINOPHILS % 1.2 % (0.0-6.0); HEMATOCRIT 40.7 % (34.2-44.1); HEMOGLOBIN 13.5 g/dL (12.0-16.0); LYMPHOCYTES # (AUTO) 1.8 (1.0-3.2); LYMPHOCYTES % 28.4 % (18.0-39.1); MEAN CORPUSCULAR HEMOGLOBIN 30.4 pg (28-32); MEAN CORPUSCULAR HGB CONC 33.2 g/dL (31-35); MEAN CORPUSCULAR VOLUME 91.7 fL (81-99); MONOCYTES # (AUTO) 0.6 (0.2-0.8); MONOCYTES % 8.9 % (4.4-11.3); NEUTROPHILS # (AUTO) 3.9 (2.1-6.9); NEUTROPHILS % 60.7 % (38.7-80.0); PLATELET COUNT 263 x10e3/uL (140-360); RED BLOOD COUNT 4.44 x10e6/uL (3.6-5.1); RED CELL DISTRIBUTION WIDTH 14.2 % (11.7-14.4)
[2019-03-09 14:59] LABS: FREE THYROXINE INDEX 3.2061 (1.4-3.8)
--- NOTE | 2019-03-09 17:09 | Diagnostic Imaging Report ---
EXAMINATION: CT of the neck with contrast HISTORY: Thyroid cancer follow-up, status post thyroidectomy years ago. History of breast cancer, diabetes and hypertension. COMPARISON: None TECHNIQUE: Multidetector helical axial images were obtained from the sternal notch through the skull base during intravenous infusion of iodinated contrast material. Images were reconstructed using soft tissue and bone algorithms and were viewed in multiplanar format. Intravenous contrast: 100 mL slice of the 370. Dose modulation, iterative reconstruction, and/or weight based adjustment of the mA/kV was utilized to reduce the radiation dose to as low as reasonably achievable. FINDINGS: Mass: None. Nodes: No radiographically significant lymph nodes. Sinuses: Imaged portions unremarkable. Oral cavity: Unremarkable. Salivary glands: Severe atrophy of the submandibular glands, which may represent sequela from prior/chronic inflammatory processes, no discrete mass in the floor of the mouth or stones at this time. Normal parotid glands. Pharynx: Unremarkable. Larynx: Unremarkable. Thyroid gland: Status post total thyroidectomy without evidence of residual or recurrent local tumor. Upper esophagus: Unremarkable. Blood vessels: Unremarkable. Bones: Prominent degenerative changes of the right TMJ. IMPRESSION: 1. Status post total thyroidectomy without residual/recurrent tumor. 2. No enlarged cervical lymphadenopathy. 3. Prominent atrophy of the submandibular glands. Signed by: Dr. Mini Ireland M.D. on 03/09/2019 5:05 PM
== END ==
LOC: CT 13:42
PROVIDERS: ATTEND Surgery
DX: Z08 Encounter for follow-up examination after completed treatment for malignant neoplasm (principal); C73 Malignant neoplasm of thyroid gland
CPT/HCPCS: 36415; 70491; 80053; 84436; 84443; 84479; 85025; Q9967

== ENCOUNTER → 2019-10-05 | Outpatient (CLI) | payer BC ==
[~2019-10-05] MED LIST changes: -IOPAMIDOL 370 MG/ML 200 ML INFUS..BTL INJ ONE; -SODIUM CHLORIDE 0.9% 50ML 50 ML ONE
[2019-10-05 12:58] LABS: ALANINE AMINOTRANSFERASE 29 IU/L (0-55); ALBUMIN 3.4 g/dL (3.5-5.0); ALBUMIN/GLOBULIN RATIO 0.9 (0.8-2.0); ALKALINE PHOSPHATASE 61 IU/L (40-150); ANION GAP 12.5 mmol/L (8-16); BLOOD UREA NITROGEN 20 mg/dL (7-26); BUN/CREATININE RATIO 27 (6-25); CALCIUM 9.6 mg/dL (8.4-10.2); CARBON DIOXIDE 27 mmol/L (22-29); CHLORIDE 106 mmol/L (98-107); CREATININE, SERUM 0.74 mg/dL (0.57-1.11); EST GLOMERULAR FILTRATION RATE > 60 ML/MIN (60-); GLUCOSE 90 mg/dL (74-118); POTASSIUM 3.5 mmol/L (3.5-5.1); SODIUM 142 mmol/L (136-145)
[2019-10-05 13:18] LABS: FREE THYROXINE INDEX 3.2483 (1.4-3.8); THYROID STIMULATING HORMONE 0.028 uIU/mL (0.350-4.940)
[2019-10-05 15:58] LABS: BASOPHILS # (AUTO) 0.1 (0.0-0.1); BASOPHILS % 0.9 % (0.0-1.0); EOSINOPHILS # (AUTO) 0.1 (0.0-0.4); EOSINOPHILS % 1.8 % (0.0-6.0); HEMATOCRIT 38.9 % (34.2-44.1); HEMOGLOBIN 12.4 g/dL (12.0-16.0); LYMPHOCYTES # (AUTO) 2.1 (1.0-3.2); LYMPHOCYTES % 30.4 % (18.0-39.1); MEAN CORPUSCULAR HGB CONC 31.9 g/dL (31-35); MONOCYTES # (AUTO) 0.5 (0.2-0.8); MONOCYTES % 7.5 % (4.4-11.3); PLATELET COUNT 297 x10e3/uL (140-360); RED BLOOD COUNT 4.14 x10e6/uL (3.6-5.1); RED CELL DISTRIBUTION WIDTH 14.2 % (11.7-14.4)
== END ==
LOC: LAB 12:14
PROVIDERS: ATTEND Surgery
DX: C73 Malignant neoplasm of thyroid gland (principal)
CPT/HCPCS: 36415; 80053; 84436; 84443; 84479; 85025

== ENCOUNTER → 2020-06-28 | Outpatient (CLI) | payer BC ==
[2020-06-28 16:33] LABS: BLOOD UREA NITROGEN 20 mg/dL (7-26); BUN/CREATININE RATIO 23 (6-25); CREATININE, SERUM 0.87 mg/dL (0.57-1.11); EST GLOMERULAR FILTRATION RATE > 60 ML/MIN (60-)
== END ==
LOC: CT 15:40
PROVIDERS: ATTEND Surgery
DX: R22.9 Localized swelling, mass and lump, unspecified (principal); Z85.850 Personal history of malignant neoplasm of thyroid
CPT/HCPCS: 36415; 70491; 82565; 84520

== ENCOUNTER 2021-04-22 06:53 | Inpatient (IN) | payer BC, MEDICARE ==
[2021-04-19 11:57] LABS: BASOPHILS # (AUTO) 0.1 (0.0-0.1); BASOPHILS % 0.8 % (0.0-1.0); EOSINOPHILS # (AUTO) 0.1 (0.0-0.4); EOSINOPHILS % 2.3 % (0.0-6.0); HEMATOCRIT 36.6 % (34.2-44.1); HEMOGLOBIN 12.1 g/dL (12.0-16.0); LYMPHOCYTES # (AUTO) 1.5 (1.0-3.2); LYMPHOCYTES % 24.6 % (18.0-39.1); MEAN CORPUSCULAR HEMOGLOBIN 31.4 pg (28-32); MEAN CORPUSCULAR HGB CONC 33.1 g/dL (31-35); MEAN CORPUSCULAR VOLUME 95.1 fL (81-99); MONOCYTES # (AUTO) 0.5 (0.2-0.8); MONOCYTES % 7.2 % (4.4-11.3); NEUTROPHILS % 64.8 % (38.7-80.0); PLATELET COUNT 291 x10e3/uL (140-360); RED BLOOD COUNT 3.85 x10e6/uL (3.6-5.1); RED CELL DISTRIBUTION WIDTH 13.8 % (11.7-14.4)
[2021-04-19 12:28] LABS: ALBUMIN 3.8 g/dL (3.5-5.0); ALBUMIN/GLOBULIN RATIO 1.2 (0.8-2.0); ANION GAP 13.5 mmol/L (8-16); CALCIUM 9.7 mg/dL (8.4-10.2); CREATININE, SERUM 0.78 mg/dL (0.57-1.11); POTASSIUM 3.5 mmol/L (3.5-5.1)
[~2021-04-22] VITALS: Ht 165.1 cm; Wt 79.8 kg
[~2021-04-22 06:53] MED LIST changes: +BUPROPION HCL150 M2 PO; +DECARA625 MCG PO; +JANUMET XR 50-1 EAC1 PO; +OLMESARTAN-HCT1 EAC1 PO; +VASCEPA1 GM PO
[2021-04-22] MEDS ORDERED: BUPIVACAINE 0.25% 30ML SDV ONE (07:38)
[2021-04-22] MEDS ORDERED: SEVOFLURANE INHAL SOLN 250 ML PEN BTL ONE (11:50)
[2021-04-22] MEDS ORDERED: ONDANSETRON HCL INJ 2MG/ML 2ML 2 MG/ML VIAL ONE (11:50)
[2021-04-22] MEDS ORDERED: DEXAMETHASONE SOD PHOS INJ 4 MG/ML SDV ONE (11:50)
[2021-04-22] MEDS ORDERED: GLYCOPYRROLATE INJ 0.2 MG/ML VIAL ONE (11:50)
[2021-04-22] MEDS ORDERED: ROCURONIUM BROMIDE 10 MG/ML 5ML VIAL IV ONE (11:50)
[2021-04-22] MEDS ORDERED: PROPOFOL IV EMULSION 10 MG/ML 20 ML VIAL ONE (11:50)
[2021-04-22] MEDS ORDERED: NEOSTIGMINE 1 MG/ML 10ML VIAL ONE (11:50)
[2021-04-22] MEDS ORDERED: LIDOCAINE HCL 2% LOCAL INJ 5 ML SDV VIAL INJ ONE (11:50)
[2021-04-22] MEDS ORDERED: POVIDONE IODINE 0.05% 0.05 % ML PO ONE (11:50)
[2021-04-22] MEDS ORDERED: KETOROLAC TROMETHAMINE 30 MG/ML VIAL ONE (11:50)
[2021-04-22] MEDS ORDERED: HYDROMORPHONE 0.2MG/ML-SOD CHL 30ML PCA SYRINGE IV PRN (12:00)
[2021-04-22] MEDS: INSULIN REGULAR, HUMAN 100 UNIT/1 ML SQ SCH ×2 (12:00→17:03)
[2021-04-22] MEDS ORDERED: NALOXONE HCL INJ 0.4 MG/ML AMP IV PRN (12:00)
[2021-04-22] MEDS ORDERED: KETOROLAC TROMETHAMINE 30 MG/ML VIAL IV PRN (12:00)
[2021-04-22] MEDS ORDERED: MIDAZOLAM HCL 2 MG/2 ML VIAL ONE (12:36)
[2021-04-22] MEDS ORDERED: FENTANYL CITRATE/PF 100MCG/2 ML INJ ONE (12:36)
[2021-04-22] MEDS: ONDANSETRON HCL INJ 2MG/ML 2ML 2 MG/ML VIAL IV PRN ×3 (12:41→18:20)
[2021-04-22] MEDS ORDERED: MEPERIDINE HCL INJ 25 MG/ML VIAL ONE (13:01)
[2021-04-22] MEDS ORDERED: PROMETHAZINE HCL (IM) 25 MG/ML VIAL IM ONE (13:05)
[2021-04-22 13:34] VITALS: BP 102/60
[2021-04-22 13:41] VITALS: BP 102/60
[2021-04-22] MEDS: SODIUM CHLORIDE 0.9% 1000ML 1,000 ML IV SCH (14:11)
[2021-04-22 15:59] VITALS: BP 107/53
[2021-04-22 16:02] VITALS: BP 107/53
[2021-04-22] MEDS: Cefazolin 1 GM in SODIUM CHLORIDE 0.9% 50ML 50 ML IV SCH (17:42)
[2021-04-22 20:00] VITALS: BP 113/64
[2021-04-22 21:03] VITALS: BP 113/64
[2021-04-23] VITALS (7 sets, daily range): BP systolic 110–119; BP diastolic 52–63
[2021-04-23] MEDS: SODIUM CHLORIDE 0.9% 1000ML 1,000 ML IV SCH ×3 (00:10→21:25)
[2021-04-23] MEDS: Cefazolin 1 GM in SODIUM CHLORIDE 0.9% 50ML 50 ML IV SCH (01:57)
[2021-04-23 05:02] LABS: BASOPHILS % 0.3 % (0.0-1.0); EOSINOPHILS % 0.1 % (0.0-6.0); HEMATOCRIT 31.3 % (34.2-44.1); LYMPHOCYTES # (AUTO) 1.2 (1.0-3.2); LYMPHOCYTES % 16.1 % (18.0-39.1); MEAN CORPUSCULAR HEMOGLOBIN 31.3 pg (28-32); MEAN CORPUSCULAR HGB CONC 31.9 g/dL (31-35); MEAN CORPUSCULAR VOLUME 97.8 fL (81-99); MONOCYTES # (AUTO) 0.6 (0.2-0.8); NEUTROPHILS # (AUTO) 5.4 (2.1-6.9); NEUTROPHILS % 75.2 % (38.7-80.0); PLATELET COUNT 249 x10e3/uL (140-360)
[2021-04-23 05:33] LABS: ANION GAP 14.3 mmol/L (8-16); CREATININE, SERUM 0.72 mg/dL (0.57-1.11); POTASSIUM 3.3 mmol/L (3.5-5.1)
[2021-04-23] MEDS: INSULIN REGULAR, HUMAN 100 UNIT/1 ML SQ SCH ×5 (06:00→23:56)
[2021-04-23] MEDS: LEVOTHYROXINE SODIUM 112 MCG TAB PO SCH (06:03)
[2021-04-23] MEDS: ESCITALOPRAM OXALATE 10 MG TAB PO SCH (08:22)
[2021-04-23] MEDS: BUPROPION HCL SR 150 MG TAB PO SCH (08:22)
[2021-04-23] MEDS: AMLODIPINE BESYLATE 10 MG TAB PO SCH (08:22)
[2021-04-23] MEDS: BISOPROLOL FUMARATE 10 MG TAB PO SCH (08:23)
[2021-04-23] MEDS ORDERED: NON-FORMULARY MEDICATION (Bisoprolol Fumarate 5 MG) PO SCH (09:00)
[2021-04-23] MEDS ORDERED: ACETAMINOPHEN 325 MG TAB PO PRN (14:30)
[2021-04-24] VITALS (8 sets, daily range): BP systolic 106–144; BP diastolic 52–68
[2021-04-24] MEDS: INSULIN REGULAR, HUMAN 100 UNIT/1 ML SQ SCH ×3 (06:00→16:40)
[2021-04-24] MEDS: LEVOTHYROXINE SODIUM 112 MCG TAB PO SCH (06:19)
[2021-04-24] MEDS ORDERED: SODIUM CHLORIDE 0.9% 1000ML 1,000 ML IV SCH (08:00)
[2021-04-24] MEDS ORDERED: DESLORATADINE5 MG PO (08:31)
[2021-04-24] MEDS: AMLODIPINE BESYLATE 10 MG TAB PO SCH (08:34)
[2021-04-24] MEDS: ESCITALOPRAM OXALATE 10 MG TAB PO SCH (08:35)
[2021-04-24] MEDS: BUPROPION HCL SR 150 MG TAB PO SCH (08:35)
[2021-04-24] MEDS: BISOPROLOL FUMARATE 10 MG TAB PO SCH (08:39)
[2021-04-24] MEDS ORDERED: HYDROMORPHONE 1MG/1ML INJ IV PRN (12:15)
[2021-04-24] MEDS ORDERED: MAGNESIUM HYDROXIDE 30 ML UDC PO ONE (13:00)
[2021-04-24] MEDS: HYDROCODONE/APAP 7.5MG-325MG 1 EA TAB PO PRN ×2 (13:40→18:20)
[2021-04-24] MEDS: BISACODYL 10 MG SUPP PR SCH (21:00)
[2021-04-25 04:46] VITALS: BP 124/64
[2021-04-25] MEDS: INSULIN REGULAR, HUMAN 100 UNIT/1 ML SQ SCH ×2 (05:50)
[2021-04-25] MEDS: LEVOTHYROXINE SODIUM 112 MCG TAB PO SCH (05:50)
[2021-04-25] MEDS: HYDROCODONE/APAP 7.5MG-325MG 1 EA TAB PO PRN ×2 (07:06→11:48)
[2021-04-25] MEDS: BISACODYL 10 MG SUPP PR SCH (08:00)
[2021-04-25 08:01] VITALS: BP 116/51
[2021-04-25 08:13] VITALS: BP 116/51
[2021-04-25] MEDS: ESCITALOPRAM OXALATE 10 MG TAB PO SCH (08:31)
[2021-04-25] MEDS: AMLODIPINE BESYLATE 10 MG TAB PO SCH (08:32)
[2021-04-25] MEDS: BUPROPION HCL SR 150 MG TAB PO SCH (08:32)
[2021-04-25] MEDS: BISOPROLOL FUMARATE 10 MG TAB PO SCH (08:32)
== END 2021-04-25 12:40 | disposition home or self-care (01) | DRG 337 ==
LOC: OR 06:53 → PACU V 11:56 → MED/SURG 13:06
PROVIDERS: ADMIT Surgery; ATTEND Surgery
PROC: 0DN80ZZ Release Small Intestine, Open Approach (ICD-10-PCS; 2021-04-22)
PROC: 0WUF0JZ Supplement Abdominal Wall with Synthetic Substitute, Open Approach (ICD-10-PCS; principal; 2021-04-22 08:59)
DX: K43.0 Incisional hernia with obstruction, without gangrene (principal); Z20.822 Contact with and (suspected) exposure to COVID-19; Z85.3 Personal history of malignant neoplasm of breast; I10 Essential (primary) hypertension; E11.9 Type 2 diabetes mellitus without complications; E03.9 Hypothyroidism, unspecified
CPT/HCPCS: 36415; 71046; 80048; 80053; 82948; 85025; 93005; 94799; J0690; J1100; J1170; J1885; J2001; J2175; J2250; J2405; J2550; J2710; J3010; J7030; U0002